=== PATIENT | male | born 1965 | race Caucasian/White ===

== ENCOUNTER 2016-07-04 09:25 | Inpatient (IN) | payer OTHER, MEDICAID ==
--- NOTE | 2016-07-04 09:22 | EDPHY ---
H & P Time Seen by Provider: 07/04/16 09:25 HPI/ROS: CHIEF COMPLAINT: Fever and low blood pressure HISTORY OF PRESENT ILLNESS: Patient has quadriplegia and has an indwelling catheter. At some abdominal tightness and decreased urine output with darker urine color over the past 24 hours, fever overnight and low blood pressure down to the 60s. The emergency department patient still has lower abdominal tightness. Decreased urine output. Still feels fevers. Denies headache or sore throat or cough. No respiratory symptoms. REVIEW OF SYSTEMS: Eye: no change in vision ENT: no sore throat Cardiac: no chest pain or syncope Pulmonary: no cough or SOB Abdomen: Did have a little bit of red blood per rectum, has had diarrhea for a couple of days. Musculoskeletal: no back pain Skin: no rash Neuro: no headache Constitutional: no fever : HPI A comprehensive 10 point review of systems is otherwise negative aside from elements mentioned in the history of present illness. PAST MEDICAL HISTORY: Quadriplegia, history of Clostridium difficile. Suprapubic catheter.Hypothyroid, hypertension. Social history: Here with family and caregiver. General Appearance: Alert and conversant, cooperative. Eyes: No scleral icterus. ENT, Mouth: Normal mucous membranes. Respiratory: Normal respiratory effort, breath sounds equal, lungs are clear to auscultation. Cardiovascular: Regular rate and rhythm. Gastrointestinal: Abdomen is soft and non tender. Suprapubic catheter in place , diarrhea present. Neurological: Alert and oriented x3. Normally conversant. Quadriplegia. Skin: Warm and dry, no rashes. No decubitus or area of cellulitis or sacral breakdown. Musculoskeletal: No peripheral edema and no joint swelling. Psychiatric: Not agitated. Emergency Department course/MDM: Patient arrives with concern for infection given low blood pressure and fever. Blood culture x2, chest x-ray, lactate, urinalysis, stool sent for C diff. 1152: 100/57, IVF 30ml/kg bolus still infusing, Zosyn 4.[address] Villa, c. diff pending. Severe sepsis w/o septic shock. Blood pressure after 30 mL/kilos IV bolus normal saline shows 106/63 at 1:00 p.m.; blood pressure continually over 90 systolic in the emergency department after fluid bolus. At this point most likely source is urine, although Clostridium difficile still pending. Lactate less than 2. Discussed with Cynthia for Dr. Isabel. 1332: In reviewing the patient's chart appears he is on chronic steroids. 100 mg IV hydrocortisone ordered at this time, discussed with the patient's nurse Lorna in the step-down unit. Constitutional: Initial Vital Signs Temperature (C) 38.2 C 07/04/16 09:25 Heart Rate 99 07/04/16 09:25 Respiratory Rate 16 07/04/16 09:25 Blood Pressure 81/55 L 07/04/16 09:25 O2 Sat (%) 94 07/04/16 09:25 O2 Delivery Mode Room Air Allergies/Adverse Reactions: bacitracin [From Neosporin ([id number])] Allergy (Verified 01/21/16 16:24) bacitracin zinc [From Neosporin ([id number])] Allergy (Verified 01/21/16 16: 24) neomycin sulfate [From Neosporin ([id number]-[id number])] Allergy (Verified 01/21/16 16: 24) polymyxin B [From Neosporin ([id number]-qrh-[id number])] Allergy (Verified 01/21/16 16:24) sulfamethoxazole [From Bactrim] Allergy (Verified 01/21/16 16:24) trimethoprim [From Bactrim] Allergy (Verified 01/21/16 16:24) Home Medications: Medication Instructions Recorded Baclofen [Baclofen 10 mg (*)] 10 mg PO BID@0700,1200 07/04/16 Baclofen [Baclofen 20 mg (*)] 20 mg PO DAILY@1800 07/04/16 FLUDROCORTISONE ACETATE 0.1 mg PO DAILY 07/04/16 Herbals/Supplements -Info Only 1 ea PO DAILY 07/04/16 Hydrocortisone [Cortef 10 mg (*)] 10 mg PO BID@0900,1200 07/04/16 LORazepam [Ativan (*)] 0.25 mg PO HS 07/04/16 Levothyroxine [Synthroid 88 mcg 88 mcg PO DAILY@0700 07/04/16 (*)] Liothyronine Sodium [Cytomel 5 mcg 5 mcg PO DAILY@0700 07/04/16 (*)] Lipase/Protease/Amylase [ZENPEP DR 3 cap PO TIDMEAL 07/04/16 5,000 UNITS CAPSULE] Melatonin [Melatonin 3 MG (*)] 10 mg PO HS 07/04/16 Midodrine HCl 10 mg PO BID@0700,2300 07/04/16 Midodrine HCl [Proamatine/Midodrin] 5 mg PO BID@1200,1700 07/04/16 Phenylephrine HCl 1 drop NASAL BID@1200,1700 07/04/16 Potassium Chloride [Klor-Con 10] 15 meq PO TIDMEAL 07/04/16 Selenium [Selenium 200mcg (*)] 200 mcg PO DAILY@1800 07/04/16 Warfarin Sodium [Coumadin 1MG (*)] 13.5 mg PO HS 07/04/16 Medical Decision Making - Diagnostics Imaging: Chest x-ray viewed independently by myself does not show pneumonia. Differential Diagnosis: Differential for fever considered including but not limited to UTI, pneumonia, meningitis, cellulitis. Consult/Admit Bed Type: [facility] 1037; Zosyn IV. Dr. Isabel 1663. Critical Care Time: Critical care time spent by me, Dr. Katz, exclusively with the care of this patient was 35 minutes, exclusive of PA or [employer] time and exclusive of separate procedures. The organ system at risk was infectious and I ordered multiple diagnostic studies including lab and imaging, IV antibiotics Zosyn 4.5 g, IV fluid bolus, discussion with hospitalist physician Dr. Isabel, and Dr. Villa infectious disease design center consultant; to stabilize the patient and prevent worsening of the patient's condition. - Data Points Laboratory Results: Laboratory Results 07/04/16 10:04 07/04/16 10:04 07/04/16 07/04/16 07/04/16 11:05 10:04 09:37 WBC 12.84 H 10^3/uL (3.80-9.50) RBC 4.77 10^6/uL (4.40-6.38) Hgb 14.8 g/dL (13.7-17.5) Hct 42.6 % (40.0-51.0) MCV 89.3 fL (81.5-99.8) MCH 31.0 pg (27.9-34.1) MCHC 34.7 g/dL (32.4-36.7) RDW 14.1 % (11.5-15.2) Plt Count 132 L 10^3/uL (150-400) MPV 9.6 fL (8.7-11.7) Neut % (Auto) 86.1 H % (39.3-74.2) Lymph % (Auto) 3.0 L % (15.0-45.0) [place] % (Auto) 9.8 % (4.5-13.0) Eos % (Auto) 0.1 L % (0.6-7.6) Baso % (Auto) 0.5 % (0.3-1.7) Nucleat RBC Rel Count 0.0 % (0.0-0.2) Absolute Neuts (auto) 11.06 H 10^3/uL (1.70-6.50) Absolute Lymphs (auto) 0.38 L 10^3/uL (1.00-3.00) Absolute Monos (auto) 1.26 H 10^3/uL (0.30-0.80) Absolute Eos (auto) 0.01 L 10^3/uL (0.03-0.40) Absolute Basos (auto) 0.06 10^3/uL (0.02-0.10) Absolute Nucleated RBC 0.00 10^3/uL (0-0.01) Immature Gran % 0.5 % (0.0-1.1) Seg Neutrophils % 54 % Band Neutrophils % 35 % Lymphocytes % 3 % Monocytes % 8 % Immature Gran # 0.07 10^3/uL (0.00-0.10) Absolute Seg Neuts 6.93 H 10^/uL (1.70-6.50) Absolute Band Neuts 4.49 H 10^3/uL (0.00-0.70) Absolute Lymphocytes 0.39 L 10^3/uL (1.00-3.00) Absolute Monocytes 1.03 H 10^3/uL (0.30-0.80) RBC/WBC/PLT Morphology NORMAL (NORMAL) Platelet Estimate DECREASED L (ADEQ) PT 30.4 H SEC (12.0-15.0) INR 2.86 H (0.83-1.16) APTT 46.1 H SEC (23.0-38.0) VBG Lactic Acid 1.5 mmol/L 1.4 mmol/L (0.7-2.1) (0.7-2.1) Sodium 127 L mEq/L (134-144) Potassium 4.5 mEq/L (3.5-5.2) Chloride 97 mEq/L (97-110) Carbon Dioxide 20 L mEq/l (22-31) Anion Gap 10 mEq/L (8-16) BUN 25 H mg/dL (7-23) Creatinine 1.3 mg/dL (0.7-1.3) Estimated GFR 58 Glucose 90 mg/dL (70-100) Calcium 8.0 L mg/dL (8.5-10.4) Total Bilirubin 1.9 H mg/dL (0.1-1.4) Urine Color Urine Appearance Urine pH Ur Specific Green[place] Urine Protein Urine Ketones Urine Blood Urine Nitrate Urine Bilirubin Urine Urobilinogen Ur Leukocyte Esterase Urine RBC Urine WBC Ur Epithelial Cells Urine Bacteria Hyaline Casts Urine Mucus Urine Sperm Urine Glucose C. difficile Tox (PCR) Cancelled 07/04/16 09:34 WBC RBC Hgb Hct MCV MCH MCHC RDW Plt Count MPV Neut % (Auto) Lymph % (Auto) [place] % (Auto) Eos % (Auto) Baso % (Auto) Nucleat RBC Rel Count Absolute Neuts (auto) Absolute Lymphs (auto) Absolute Monos (auto) Absolute Eos (auto) Absolute Basos (auto) Absolute Nucleated RBC Immature Gran % Seg Neutrophils % Band Neutrophils % Lymphocytes % Monocytes % Immature Gran # Absolute Seg Neuts Absolute Band Neuts Absolute Lymphocytes Absolute Monocytes RBC/WBC/PLT Morphology Platelet Estimate PT INR APTT VBG Lactic Acid Sodium Potassium Chloride Carbon Dioxide Anion Gap BUN Creatinine Estimated GFR Glucose Calcium Total Bilirubin Urine Color SABINE Urine Appearance MODERATELY TURBID Urine pH 5.0 (5.0-7.5) Ur Specific [place] 1.017 (1.002-1.030) Urine Protein 2+ H (NEGATIVE) Urine Ketones 1+ H (NEGATIVE) Urine Blood 2+ H (NEGATIVE) Urine Nitrate POSITIVE H (NEGATIVE) Urine Bilirubin NEGATIVE (NEGATIVE) Urine Urobilinogen NEGATIVE EU (0.2-1.0) Ur Leukocyte Esterase 2+ H (NEGATIVE) Urine RBC 25-50 H /hpf (0-3) Urine WBC 50-182 H /hpf (0-3) Ur Epithelial Cells NONE SEEN /lpf (NONE-1+) Urine Bacteria 4+ H /hpf (NONE SEEN) Hyaline Casts 5-15 /lpf (0-1) Urine Mucus 3+ H /lpf (NONE-1+) Urine Sperm PRESENT /hpf (NONE SEEN) Urine Glucose NEGATIVE (NEGATIVE) C. difficile Tox (PCR) Microbiology Results: MICROBIOLOGY 07/04/16 09:37 Stool Gastrointestinal Tract Panel (PCR) - Final Medications Given: Discontinued Medications Piperacillin/Tazobactam/Dextrose (Zosyn (Premix)) 100 mls @ 200 mls/hr IV EDNOW ONE PRN Reason: Protocol Stop: 07/04/16 11:06 Last Admin: 07/04/16 11:40 Dose: 100 mls Sodium Chloride (Ns) 1,000 mls @ 0 mls/hr IV ONCE ONE PRN Reason: Wide Open Stop: 07/04/16 13:22 Last Admin: 07/04/16 13:26 Dose: 1,000 mls Sodium Chloride (Ns *For Sepsis Order Set Only*) 1,905 ml IV EDNOW ONE Stop: 07/04/16 10:38 Last Admin: 07/04/16 10:40 Dose: 1,905 ml Departure - Departure Disposition: [facility] Inpatient Acute Clinical Impression: Urinary tract infection Condition: Fair
[2016-07-04 10:06] LABS: COLOR AMBER; LEUKOCYTE ESTERASE,URINE 2+ (NEGATIVE); NITRITE,URINE POSITIVE (NEGATIVE)
[2016-07-04 10:13] LABS: BACTERIA 4+ /hpf (NONE SEEN); MUCUS 3+ /lpf (NONE-1+); RBC,URINE 25-50 /hpf (0-3); WBC,URINE 50-182 /hpf (0-3)
[2016-07-04 10:22] LABS: % IMMATURE GRANULYOCYTES 0.5 % (0.0-1.1); ABSOLUTE IMMATURE GRANULOCYTES 0.07 10^3/uL (0.00-0.10); ADD DIFF? NO; ADD MORPH? NO; ADD SCAN? YES; ATYPICAL LYMPHOCYTE FLAG 0 (0-99); FRAGMENT RBC FLAG 0 (0-99); HEMATOCRIT 42.6 % (40.0-51.0); HEMOGLOBIN 14.8 g/dL (13.7-17.5); LIPEMIA HEMOLYSIS FLAG 90 (0-99); MEAN CELL HEMOGLOBIN CONCENTR. 34.7 g/dL (32.4-36.7); MEAN CELL VOLUME 89.3 fL (81.5-99.8); MEAN PLATELET VOLUME 9.6 fL (8.7-11.7); PLATELET CLUMPS FLAG 0 (0-99); PLATELET COUNT 132 10^3/uL (150-400); RED BLOOD CELL COUNT 4.77 10^6/uL (4.40-6.38); RED CELL DISTRIBUTION WIDTH 14.1 % (11.5-15.2)
[2016-07-04 10:23] LABS: LEFT SHIFT FLG 250 (0-99)
[2016-07-04 10:26] LABS: SCAN POSITIVE
[2016-07-04 10:36] LABS: APTT 46.1 SEC (23.0-38.0); INR 2.86 (0.83-1.16); PROTIME(PATIENT) 30.4 SEC (12.0-15.0)
[2016-07-04] MEDS ORDERED: PIPERACILLIN/TAZO 4.5 GM/DEX 100 ML IV ONE (10:37)
[2016-07-04] MEDS ORDERED: NS 1,000 ML BAG *FOR SEPSIS ORDER SET ONLY IV ONE (10:37)
[2016-07-04 10:38] LABS: ANION GAP 10 mEq/L (8-16); BILIRUBIN,TOTAL 1.9 mg/dL (0.1-1.4); CARBON DIOXIDE 20 mEq/l (22-31); CHLORIDE 97 mEq/L (97-110); CREATININE 1.3 mg/dL (0.7-1.3); GLOMERULAR FILTRATION RATE 58; GLUCOSE 90 mg/dL (70-100); POTASSIUM 4.5 mEq/L (3.5-5.2); SODIUM 127 mEq/L (134-144)
[2016-07-04 10:58] LABS: PLATELET ESTIMATE DECREASED (ADEQ)
--- NOTE | 2016-07-04 11:20 | DX ---
Portable Chest, Single View History: Low blood pressure. Diarrhea. Meets sepsis criteria. COMPARISON: September 2014. FINDINGS: Heart size is within normal limits. The lungs are clear of acute consolidation. There appea rs to be a 7 mm pulmonary nodule in the right mid lung. No evidence for pleural effusion or pneumotho rax. There is a mild dextroscoliotic curvature to the thoracic spine. Mild degenerative change is see n in both shoulders. There is evidence of prior surgery in the lower cervical spine. IMPRESSION: 1. No evidence for acute cardiopulmonary abnormality. 2. Possible 7 mm pulmonary nodule right mid lung. Recommend follow-up chest x-ray in 3-6 months.
[2016-07-04] MEDS ORDERED: NS 1,000 ML IV ONE (13:21)
[2016-07-04] MEDS ORDERED: HYDROCORTISONE 100 MG/2 ML VIAL IVP ONE (14:33)
[2016-07-04] MEDS ORDERED: ACETAMINOPHEN 325 MG TAB PO PRN (15:12)
[2016-07-04] MEDS ORDERED: oxyCODONE IR 5 MG TAB PO PRN (15:12)
[2016-07-04] MEDS ORDERED: ONDANSETRON 4 MG/2 ML VIAL IVP PRN (15:12)
[2016-07-04] MEDS: NS 1,000 ML IV SCH (15:33)
[2016-07-04] MEDS ORDERED: POTASSIUM CL 20 MEQ/15 ML UDCUP PO SCH (16:00)
[2016-07-04] MEDS ORDERED: VANCOMYCIN 750 MG in D5W 150 ML IV ONE (16:34)
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
[2016-07-04] MEDS: PHENYLEPHRINE 10% OP SCH (17:00)
[2016-07-04] MEDS: BACLOFEN 20 MG TAB PO SCH (17:06)
[2016-07-04] MEDS: MIDODRINE HCL 5 MG TAB PO SCH ×4 (17:07→22:44)
[2016-07-04] MEDS: PROTEASE PO SCH (17:56)
[2016-07-04] MEDS: AMYLASE PO SCH (17:56)
[2016-07-04] MEDS: LIPASE PO SCH (17:56)
[2016-07-04] MEDS ORDERED: POTASSIUM CHLORIDE 15 MEQ PO SCH (18:00)
[2016-07-04] MEDS: PIPERACILLIN/TAZO 4.5 GM/DEX 100 ML IV SCH (19:02)
[2016-07-04] MEDS: SELENIUM 0.2 MG TAB PO SCH (19:13)
[2016-07-04] MEDS ORDERED: WARFARIN SODIUM 5 MG TAB PO SCH (21:00)
[2016-07-04] MEDS ORDERED: WARFARIN SODIUM 1 MG TAB PO SCH (21:00)
[2016-07-04] MEDS ORDERED: PIPERACILLIN/TAZO 4.5 GM/DEX 100 ML IV SCH (22:00)
[2016-07-04] MEDS: MELATONIN 3 MG TAB PO SCH (22:40)
[2016-07-04] MEDS: LORazepam 0.5 MG TAB PO SCH (22:42)
[2016-07-04] MEDS: POTASSIUM CL 20 MEQ PKT PO SCH (22:45)
[2016-07-05] MEDS: HYDROCORTISONE 100 MG/2 ML VIAL IVP SCH ×4 (00:24→23:11)
--- NOTE | 2016-07-05 00:42 | GCON ---
[f rep st] CONSULTATION INFECTIOUS DISEASE CONSULTATION. DATE OF CONSULTATION: 07/04/2016 REFERRING PHYSICIAN: Benoit Katz MD REASON FOR CONSULTATION: Sepsis. HISTORY OF PRESENT ILLNESS: Patient is a 50-year-old male with a past medical history of incomplete quadriplegia at C5 whom I am asked to see in consultation for sepsis. Patient developed profuse diar adbelrahman and rigors yesterday. He notes his diarrhea began after he had increased his dose of an antipar asitic herbal remedy in the artemisinin family. Post increased dose of artemisinin, he developed sha evie chills and a fever. Thereafter, he noted decreased urine output with a darker color. He did no t have any specific symptoms of UTI although this is difficult to assess with his paraplegia and decr eased sensation. He does describe having lower abdominal tightness and some sense of fullness in his flanks bilaterally. Patient does have an indwelling suprapubic catheter. He has experienced urinar y tract infection in the past and was hospitalized in 2014 for a UTI with urine cultures at that time showing growth of Morganella, Serratia, and enterococcus faecalis. Patient does not note any UTIs i n the interim or recent antibiotic exposure. He does have a remote history of C difficile as well. Multiplex PCR testing of his stool was performed earlier today and shows a negative C difficile toxin and is negative for all other tested pathogens. Patient has been empirically started on antibiotic therapy with Zosyn. Blood and urine cultures have been obtained. Given the above findings, I am now asked to assist in his ongoing management. PAST MEDICAL HISTORY: Incomplete C5 quadriplegia, UTI, chronic indwelling suprapubic catheter, adren al insufficiency, DVT/pulmonary emboli. PAST SURGICAL HISTORY: Cervical fusion, suprapubic catheter placement. CURRENT MEDICATIONS: Zosyn 4.5 g IV x1, baclofen 20 mg p.o. q.p.m. and 10 mg p.o. b.i.d., Florinef 0 .1 mg p.o. daily, hydrocortisone 100 mg IV q.8 hours, Synthroid 88 mcg p.o. daily, Cytomel 5 mg p.o. daily, Ativan 0.25 mg p.o. q.h.s., Melatonin 9 mg p.o. q.h.s., Midodrine 5 mg p.o. at 1200 and 1700 a nd 10 mg p.o. at 0700 and 2300, selenium 0.2 mg p.o. daily, warfarin 13.5 mg p.o. q.h.s. ALLERGIES: Potential reaction to sulfonamides with periorbital swelling although patient notes this continued when he was using an herbal antiparasitic agent, which he uses for chronic GI symptoms. SOCIAL HISTORY: Patient does not smoke or drink alcohol. No animal exposure or recent travel. FAMILY HISTORY: Colon cancer in his parents. REVIEW OF SYSTEMS: Patient has had sacral skin breakdown and heel skin breakdown but currently has i ntact skin throughout. Unless otherwise noted, the remainder of a 10 system review is unremarkable e xcept for increased muscle spasm. PHYSICAL EXAMINATION: VITAL SIGNS: Temperature maximum 38.2, heart rate 72, blood pressure 141/77, respiratory rate 28, oxygen saturation 93% on room air. GENERAL: Patient is chronically ill appeari ng, in no acute distress. He appears nontoxic. HEENT: There is no scleral icterus, conjunctival in jection, or conjunctival petechiae. Oropharynx clear without lesions. Dentition is in fair repair. Mucous membranes are dry. There is no tenderness over the frontal maxillary mastoid area. NECK: D ecreased range of motion post fusion. No palpable adenopathy or thyromegaly. CHEST: Clear to auscu ltation bilaterally without adventitious sounds. The respiratory effort is normal. CARDIOVASCULAR: Regular rate and rhythm with a 2/6 systolic murmur heard throughout. ABDOMEN: Soft, nontender, non distended. A suprapubic catheter is in place without significant erythema or drainage. MUSCULOSKELE BASSEM: There is no cyanosis, clubbing, or edema; there is a contracture of the left hand. SKIN: Ther e is no sacral skin breakdown or breakdown of skin over the heel; there is mild erythema in both ingu inal regions with slight erythema over the scrotum but no evidence of blisters or necrosis. NEUROLOG IC: Patient is alert and interacts appropriately with the examiner. Cranial nerves 2-12 grossly int act. Patient has paraplegia. LYMPHATICS: There are no cervical, supraclavicular, or inguinal nodes palpable. LABORATORY DATA: White blood cell count 12.8, hematocrit 42.6, platelets 132, neutrophils 54%, bands 35%. Serum creatinine is 1.3, bicarbonate is 20. Anion gap is 10. INR is 2.9. Venous lactate is 1.5. Urinalysis shows 25-50 red blood cells and 50-182 white blood cells with 4+ bacteria. Gastroin testinal multiplex PCR is negative for all pathogens tested including C difficile, blood cultures and urine cultures are pending. Chest x-ray shows no evidence of pneumonia. IMPRESSION: 1. Sepsis: Most likely, this is due to a urinary etiology given chronic suprapubic catheter. There is faint erythema over the inguinal region bilaterally and scrotal area but I suspect this will be n oninfectious rather than representing cellulitis. There is no evidence of Claribel gangrene. Given his chronic catheterization, he will be at risk for drug-resistant pathogens. RECOMMENDATIONS: 1. Zosyn 4.5 g IV q.8 hours. 2. Vancomycin 750 mg IV x1 pending further culture data. 3. Followup blood and urine cultures as available. 4. Continued ICU supportive care and volume resuscitation. Thank you for this consultation. We will continue to follow the patient with you. /[id number]/MODL
[2016-07-05] MEDS: PIPERACILLIN/TAZO 4.5 GM/DEX 100 ML IV SCH ×4 (03:58→18:33)
[2016-07-05 05:40] LABS: ADD DIFF? YES; ADD MORPH? NO; ATYPICAL LYMPHOCYTE FLAG 0 (0-99); FRAGMENT RBC FLAG 0 (0-99); HEMATOCRIT 37.4 % (40.0-51.0); HEMOGLOBIN 12.8 g/dL (13.7-17.5); LIPEMIA HEMOLYSIS FLAG 90 (0-99); MEAN CELL HEMOGLOBIN 30.8 pg (27.9-34.1); MEAN CELL HEMOGLOBIN CONCENTR. 34.2 g/dL (32.4-36.7); MEAN CELL VOLUME 90.1 fL (81.5-99.8); MEAN PLATELET VOLUME 9.9 fL (8.7-11.7); PLATELET CLUMPS FLAG 10 (0-99); PLATELET COUNT 125 10^3/uL (150-400); RED BLOOD CELL COUNT 4.15 10^6/uL (4.40-6.38); RED CELL DISTRIBUTION WIDTH 14.7 % (11.5-15.2)
[2016-07-05 05:45] LABS: ADD SCAN? NO; LEFT SHIFT FLG 300 (0-99)
[2016-07-05 05:58] LABS: ALANINE AMINOTRANSFERASE 61 IU/L (21-72); ALBUMIN 2.4 g/dL (3.5-5.0); ALKALINE PHOSPHATASE 41 IU/L (38-126); ANION GAP 9 mEq/L (8-16); ASPARTATE AMINOTRANSFERASE 40 IU/L (17-59); BILIRUBIN-CONJUGATED 0.1 mg/dL (0.0-0.5); BILIRUBIN-UNCONJUGATED 0.9 mg/dL (0.0-1.1); CALCIUM 8.1 mg/dL (8.5-10.4); CARBON DIOXIDE 21 mEq/l (22-31); CHLORIDE 110 mEq/L (97-110); CREATININE 0.7 mg/dL (0.7-1.3); GLOMERULAR FILTRATION RATE > 60; GLUCOSE 120 mg/dL (70-100); POTASSIUM 3.3 mEq/L (3.5-5.2); SODIUM 140 mEq/L (134-144); TOTAL PROTEIN 4.7 g/dL (6.3-8.2)
[2016-07-05 06:16] LABS: PROTIME(PATIENT) 48.2 SEC (12.0-15.0)
[2016-07-05 06:17] LABS: INR 5.1 (0.83-1.16)
[2016-07-05 07:25] LABS: PLATELET ESTIMATE DECREASED (ADEQ)
[2016-07-05] MEDS: NS 1,000 ML IV SCH (07:34)
[2016-07-05] MEDS: LEVOTHYROXINE 88 MCG TAB PO SCH (07:42)
[2016-07-05] MEDS: POTASSIUM CL 20 MEQ PKT PO SCH (08:01)
[2016-07-05] MEDS: BACLOFEN 10 MG TAB PO SCH ×2 (08:56→14:24)
[2016-07-05] MEDS: FLUDROCORTISONE ACETATE 0.1 MG TAB PO SCH (08:56)
[2016-07-05] MEDS: POTASSIUM CL 10 MEQ TAB PO SCH ×3 (08:56→23:11)
[2016-07-05] MEDS: LIOTHYRONINE SODIUM 5 MCG TAB PO SCH (08:56)
[2016-07-05] MEDS: MIDODRINE HCL 5 MG TAB PO SCH ×4 (09:02→23:16)
[2016-07-05] MEDS: AMYLASE PO SCH ×3 (10:14→20:47)
[2016-07-05] MEDS: LIPASE PO SCH ×3 (10:14→20:47)
[2016-07-05] MEDS: PROTEASE PO SCH ×3 (10:14→20:47)
--- NOTE | 2016-07-05 11:16 | HOSPPROG ---
Hospitalist Progress Note Assessment/Plan: * Sepsis * resolved * complicated urinary tract infection * on Zosyn * has suprapubic catheter * adrenal insufficiency * wean steroids today * history of DVT and PE * INR supratherapeutic * hold Coumadin * chronic GI complaints * stool sample is negative Subjective: feels better. Objective: Vital Signs Temp Pulse Resp BP Pulse Ox 38.0 C 70 22 H 111/95 H 95 07/04/16 17:00 07/05/16 08:00 07/05/16 08:00 07/05/16 08:00 07/05/16 08:00 Laboratory Results 07/05/16 05:07 07/05/16 05:07 07/04/16 07/05/16 07/06/16 05:59 05:59 05:59 Intake Total 5992 Output Total 3075 Balance 2917 PT 48.2 SEC (12.0-15.0) H D 07/05/16 05:07 INR 5.10 (0.83-1.16) H* 07/05/16 05:07 - Physical Exam Constitutional: no apparent distress, appears nourished, not in pain Eyes: anicteric sclera, EOMI Ears, Nose, Mouth, Throat: moist mucous membranes, hearing normal, ears appear normal Cardiovascular: regular rate and rhythym, no murmur, rub, or gallop Respiratory: no respiratory distress, no rales or rhonchi, clear to auscultation Gastrointestinal: normoactive bowel sounds, soft, non-tender abdomen, no palpable masses Skin: warm Neurologic: AAOx3 Psychiatric: interacting appropriately, not anxious, not encephalopathic, thought process linear ICD10 Worksheet Patient Problems: Problems Problem Status Diagnosed Chest pain Acute Urinary retention Acute Urinary tract infection Acute
[2016-07-05] MEDS: PHENYLEPHRINE 10% OP SCH ×2 (12:37→18:44)
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
[2016-07-05] MEDS: SELENIUM 0.2 MG TAB PO SCH (17:38)
[2016-07-05] MEDS: BACLOFEN 20 MG TAB PO SCH (17:38)
--- NOTE | 2016-07-05 17:47 | PCMIDPN ---
Assessment/Plan: Assessment/Plan: * Sepsis likely of urinary etiology: Urine culture with multiple pathogens although Enterococcus appears to be dominant pathogen. Await further identification and susceptibility profiles on organisms. Continue Zosyn. Will not utilized further vancomycin. Discussed with patient that prudent to continue hospital stay pending further culture data and current IV antibiotics. 07/05/16 17:44 Subjective: Patient eager to go home. Feels markedly improved. Objective: Vital Signs Temp Pulse Resp BP Pulse Ox 36.8 C 89 17 142/86 H 95 07/05/16 16:00 07/05/16 16:00 07/05/16 16:00 07/05/16 16:00 07/05/16 16:00 Laboratory Results 07/05/16 05:07 07/05/16 05:07 07/04/16 07/05/16 07/06/16 05:59 05:59 05:59 Intake Total 5992 Output Total 3075 Balance 2917 Zosyn # 2 Status post vancomycin x1 Urine culture with growth of lactose fermenting gram-negative obed x2 species and Enterococcus Blood cultures no growth today - Physical Exam General Appearance: alert, no apparent distress EENT: pharynx normal, No conjunctival petechiae Respiratory: lungs clear, No respiratory distress Cardiac/Chest: regular rate, rhythm Abdomen: No distended ICD10 Worksheet Patient Problems: Problems Problem Status Diagnosed Chest pain Acute Urinary retention Acute Urinary tract infection Acute
[2016-07-05] MEDS: LORazepam 0.5 MG TAB PO SCH (23:12)
[2016-07-05] MEDS: MELATONIN 3 MG TAB PO SCH (23:13)
[2016-07-06] MEDS: PIPERACILLIN/TAZO 4.5 GM/DEX 100 ML IV SCH ×3 (03:10→21:54)
[2016-07-06 05:36] LABS: ADD MORPH? NO; ADD SCAN? YES; ATYPICAL LYMPHOCYTE FLAG 0 (0-99); FRAGMENT RBC FLAG 0 (0-99); HEMATOCRIT 35.3 % (40.0-51.0); HEMOGLOBIN 11.8 g/dL (13.7-17.5); LIPEMIA HEMOLYSIS FLAG 80 (0-99); MEAN CELL HEMOGLOBIN 29.8 pg (27.9-34.1); MEAN CELL HEMOGLOBIN CONCENTR. 33.4 g/dL (32.4-36.7); MEAN CELL VOLUME 89.1 fL (81.5-99.8); PLATELET CLUMPS FLAG 0 (0-99); PLATELET COUNT 120 10^3/uL (150-400); RED BLOOD CELL COUNT 3.96 10^6/uL (4.40-6.38); RED CELL DISTRIBUTION WIDTH 14.6 % (11.5-15.2)
[2016-07-06 05:45] LABS: LEFT SHIFT FLG 230 (0-99)
[2016-07-06 05:46] LABS: PROTIME(PATIENT) 58.4 SEC (12.0-15.0)
[2016-07-06 05:47] LABS: ANION GAP 9 mEq/L (8-16); CALCIUM 8.1 mg/dL (8.5-10.4); CARBON DIOXIDE 23 mEq/l (22-31); CHLORIDE 110 mEq/L (97-110); CREATININE 0.6 mg/dL (0.7-1.3); GLOMERULAR FILTRATION RATE > 60; GLUCOSE 90 mg/dL (70-100); POTASSIUM 3.5 mEq/L (3.5-5.2); SODIUM 142 mEq/L (134-144)
[2016-07-06 06:01] LABS: INR 6.48 (0.83-1.16)
[2016-07-06] MEDS: HYDROCORTISONE 100 MG/2 ML VIAL IVP SCH (06:26)
[2016-07-06 06:30] LABS: ADD DIFF? YES; SCAN POSITIVE
[2016-07-06 06:40] LABS: GIANT PLATELETS PRESENT; LARGE PLATELETS PRESENT; PLATELET ESTIMATE DECREASED (ADEQ); TOXIC GRANULATION PRESENT; TOXIC VACUOLIZATION PRESENT
[2016-07-06] MEDS: BACLOFEN 10 MG TAB PO SCH ×2 (09:17→16:03)
[2016-07-06] MEDS: LEVOTHYROXINE 88 MCG TAB PO SCH (09:18)
[2016-07-06] MEDS: POTASSIUM CL 10 MEQ TAB PO SCH ×3 (09:19→21:51)
[2016-07-06] MEDS: LIPASE PO SCH ×3 (09:21→18:36)
[2016-07-06] MEDS: LIOTHYRONINE SODIUM 5 MCG TAB PO SCH (09:21)
[2016-07-06] MEDS: AMYLASE PO SCH ×3 (09:21→18:36)
[2016-07-06] MEDS: PROTEASE PO SCH ×3 (09:21→18:36)
[2016-07-06] MEDS: HYDROCORTISONE 10 MG TAB PO SCH ×2 (09:29→16:00)
[2016-07-06] MEDS: MIDODRINE HCL 5 MG TAB PO SCH ×4 (09:53→21:52)
--- NOTE | 2016-07-06 13:55 | PCMIDPN ---
Assessment/Plan: Assessment/Plan: * Sepsis likely of urinary etiology: Urine culture with multiple pathogens including Enterococcus, Klebsiella, and Serratia as dominant pathogens. Susceptibility not available until tomorrow given mixed culture. Discussed with patient and favor continued Zosyn pending additional susceptibility data. Zosyn may be potentiating affect of warfarin (on hold) as could his presentation with sepsis. * Diarrhea: Stool multiplex PCR negative. May be related to prior herbal therapies. 07/06/16 13:53 Subjective: Continues to feel improved but still with diarrhea. Did not sleep well last night. Objective: Vital Signs Temp Pulse Resp BP Pulse Ox 36.7 C 68 14 140/90 H 93 07/06/16 11:37 07/06/16 11:37 07/06/16 11:37 07/06/16 11:37 07/06/16 11:37 Laboratory Results 07/06/16 04:58 07/06/16 04:58 07/05/16 07/06/16 07/07/16 05:59 05:59 05:59 Intake Total 5992 1500 Output Total 3075 2650 1200 Balance 2917 -1150 -1200 Zosyn # 3 Blood cultures no growth Urine culture with growth of multiple pathogens with the dominant including Enterococcus, Klebsiella, and Serratia - Physical Exam General Appearance: alert, no apparent distress EENT: pharynx normal, No scleral icterus Cardiac/Chest: regular rate, rhythm Skin: other (Erythema in both inguinal regions has resolved with mild residual scrotal erythema) ICD10 Worksheet Patient Problems: Problems Problem Status Diagnosed Chest pain Acute Urinary retention Acute Urinary tract infection Acute
[2016-07-06 15:42] VITALS: RESP 16
--- NOTE | 2016-07-06 16:16 | HOSPPROG ---
Hospitalist Progress Note Assessment/Plan: * Sepsis * resolved * complicated urinary tract infection * on Zosyn * has suprapubic catheter * positive Enterococcus among other bacteria * adrenal insufficiency * switch to home dose of steroids * history of DVT and PE * INR supratherapeutic * hold Coumadin * chronic GI complaints * stool sample is negative Subjective: continues to improve. Still having some diarrhea Objective: Vital Signs Temp Pulse Resp BP Pulse Ox 36.8 C 53 L 16 137/84 H 93 07/06/16 15:41 07/06/16 15:41 07/06/16 15:41 07/06/16 15:41 07/06/16 15:41 Laboratory Results 07/06/16 04:58 07/06/16 04:58 07/05/16 07/06/16 07/07/16 05:59 05:59 05:59 Intake Total 5992 1500 Output Total 3075 2650 1200 Balance 2917 -1150 -1200 PT 58.4 SEC (12.0-15.0) H D 07/06/16 04:58 INR 6.48 (0.83-1.16) H* 07/06/16 04:58 - Physical Exam Constitutional: no apparent distress, appears nourished, not in pain Eyes: anicteric sclera, EOMI Cardiovascular: regular rate and rhythym Respiratory: no respiratory distress Skin: warm Neurologic: AAOx3 Psychiatric: interacting appropriately, not anxious, not encephalopathic, thought process linear ICD10 Worksheet Patient Problems: Problems Problem Status Diagnosed Chest pain Acute Urinary retention Acute Urinary tract infection Acute
[2016-07-06] MEDS: PHENYLEPHRINE 10% OP SCH (17:23)
[2016-07-06] MEDS: SELENIUM 0.2 MG TAB PO SCH (18:40)
[2016-07-06] MEDS: MELATONIN 3 MG TAB PO SCH (21:52)
[2016-07-06] MEDS: LORazepam 0.5 MG TAB PO SCH (21:53)
[2016-07-06] MEDS: BACLOFEN 20 MG TAB PO SCH (21:53)
[2016-07-07 05:03] LABS: % IMMATURE GRANULYOCYTES 0.7 % (0.0-1.1); ABSOLUTE IMMATURE GRANULOCYTES 0.06 10^3/uL (0.00-0.10); ABSOLUTE NRBC COUNT 0.03 10^3/uL (0-0.01); ADD DIFF? NO; ADD MORPH? NO; ADD SCAN? NO; ATYPICAL LYMPHOCYTE FLAG 20 (0-99); FRAGMENT RBC FLAG 0 (0-99); HEMATOCRIT 37.4 % (40.0-51.0); HEMOGLOBIN 12.8 g/dL (13.7-17.5); LEFT SHIFT FLG 60 (0-99); LIPEMIA HEMOLYSIS FLAG 90 (0-99); MEAN CELL HEMOGLOBIN 30.3 pg (27.9-34.1); MEAN CELL HEMOGLOBIN CONCENTR. 34.2 g/dL (32.4-36.7); MEAN CELL VOLUME 88.4 fL (81.5-99.8); MEAN PLATELET VOLUME 9.8 fL (8.7-11.7); NRBC-AUTO% 0.3 % (0.0-0.2); PLATELET CLUMPS FLAG 0 (0-99); PLATELET COUNT 130 10^3/uL (150-400); RED BLOOD CELL COUNT 4.23 10^6/uL (4.40-6.38); RED CELL DISTRIBUTION WIDTH 14.8 % (11.5-15.2)
[2016-07-07 05:10] LABS: INR 3.29 (0.83-1.16)
[2016-07-07 05:12] LABS: ANION GAP 6 mEq/L (8-16); CALCIUM 8.4 mg/dL (8.5-10.4); CARBON DIOXIDE 26 mEq/l (22-31); CHLORIDE 106 mEq/L (97-110); CREATININE 0.7 mg/dL (0.7-1.3); GLOMERULAR FILTRATION RATE > 60; GLUCOSE 82 mg/dL (70-100); POTASSIUM 3.8 mEq/L (3.5-5.2); SODIUM 138 mEq/L (134-144)
[2016-07-07] MEDS: PIPERACILLIN/TAZO 4.5 GM/DEX 100 ML IV SCH (07:31)
[2016-07-07] MEDS: MIDODRINE HCL 5 MG TAB PO SCH ×2 (07:32→13:04)
[2016-07-07] MEDS: LIOTHYRONINE SODIUM 5 MCG TAB PO SCH (07:32)
[2016-07-07] MEDS: BACLOFEN 10 MG TAB PO SCH ×2 (07:32→14:23)
[2016-07-07] MEDS: LEVOTHYROXINE 88 MCG TAB PO SCH (07:32)
[2016-07-07 08:10] VITALS: TEMP 98.2
[2016-07-07] MEDS: POTASSIUM CL 10 MEQ TAB PO SCH (08:32)
[2016-07-07] MEDS: FLUDROCORTISONE ACETATE 0.1 MG TAB PO SCH (08:33)
[2016-07-07] MEDS: PROTEASE PO SCH ×2 (08:33→14:32)
[2016-07-07] MEDS: HYDROCORTISONE 10 MG TAB PO SCH ×2 (08:33→14:23)
[2016-07-07] MEDS: AMYLASE PO SCH ×2 (08:33→14:32)
[2016-07-07] MEDS: LIPASE PO SCH ×2 (08:33→14:32)
--- NOTE | 2016-07-07 11:03 | PCMIDPN ---
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 This colonization is in place secondary to the catheterization status. Will continue treatment of the patient with oral Levaquin and amoxicillin given that the most likely pathogens in the urine culture are the Klebsiella, Serratia or Enterococcus as judged by typical virulence and colony count. Plan: 1. Discontinue intravenous Zosyn. 2. Start amoxicillin 500 mg p.o. three times daily and Levaquin 750 mg p.o. daily. 7 day course for both. Subjective: Patient is sitting up in bed. No new complaint. States he feels much better than admission. Objective: Zosyn #4 Vital Signs Temp Pulse Resp BP Pulse Ox 36.8 C 66 16 122/83 H 94 07/07/16 08:00 07/07/16 08:00 07/07/16 08:00 07/07/16 08:00 07/07/16 08:00 Laboratory Results 07/07/16 04:18 07/07/16 04:18 07/06/16 07/07/16 07/08/16 05:59 05:59 05:59 Intake Total 1500 1500 Output Total 2650 3750 Balance -1150 -2250 - Physical Exam General Appearance: WD/WN, alert, no apparent distress, non-toxic Respiratory: lungs clear, normal breath sounds, No respiratory distress Cardiac/Chest: regular rate, rhythm, No tachycardia Skin: normal color, warm/dry, No rash ICD10 Worksheet Patient Problems: Problems Problem Status Diagnosed Chest pain Acute Urinary retention Acute Urinary tract infection Acute
[2016-07-07 11:39] VITALS: BP 157/98; PULSE 69; O2SAT 90
[2016-07-07] MEDS: PHENYLEPHRINE 10% OP SCH (14:32)
[2016-07-07] MEDS ORDERED: PIPERACILLIN NA/TAZO 4.5 GM in D5W 100 ML IV SCH (15:00)
--- NOTE | 2016-07-07 15:15 | GDS ---
[f rep st] DISCHARGE SUMMARY DISCHARGE DIAGNOSES: 1. Sepsis due to urinary tract infection. 2. Complicated urinary tract infection. 3. History of incomplete quadriplegia. 4. Adrenal insufficiency. 5. History of deep venous thrombosis and pulmonary embolism. 6. Supratherapeutic international normalized ratio. 7. Chronic diarrhea. HISTORY: This is a 50-year-old male presenting with fever. HOSPITAL COURSE: The patient qualified for sepsis initially. Urine was the suspected source. He wa s given IV fluids, as well as antibiotics. He did improve over the next couple days. A urine cultur e grew out several organisms, but the predominant one was Enterococcus. We are still waiting for sen sitivities on this. However, he is doing so well that we are going to discharge him home. DISPOSITION: Home. DISCHARGE MEDICATIONS: In addition to his home medicines, he will be given Levaquin and amoxicillin. DISCHARGE INSTRUCTIONS: 1. The patient's INR was quite increased during the stay and, thus, he is instructed to reduce his C oumadin dose by half today and tomorrow, and to get an INR at home tomorrow. 2. He is also instructed to have his primary care doctor follow up on the cultures and sensitivities , or to follow up with Infectious Disease. TIME SPENT: Greater than 30 minutes were spent in discharge. /[id number]/MODL
--- NOTE | 2016-07-10 10:14 | PQFORM ---
PHYSICIAN QUERY FORM Needs Your Response This query form is being sent to you to assure this patient record is coded properly. Please respond to the question below: ADULT SECONDARY EDUCATION INSTRUCTOR QUESTION: Dear Dr. Davison, It is documented in the ER report, H&P, and Dr. Villa's 07/04 Consult that this patient has a 'indwelling suprapubic catheter.' Patient is also diagnosed with a Urinary tract infection. After study, can the UTI be associated to the suprapubic catheter?? ___x___ Yes No Other more appropriate diagnosis Unable to determine Thank you Jessica Alves, [facility] HIM/Coding Dept [phone] INSTRUCTIONS FOR RESPONSE: Answer question by clicking on the "Edit Document" button. Move cursor to area below the stars. When complete, hit "Save." Click on the "Sign" button, then click "Sign" again. Type in your PIN and hit "Enter." MTDD
== END 2016-07-07 14:47 | disposition home or self-care (01) | DRG 698 ==
LOC: EDUNIT# → F2N 13:50 → F3E 07-05 22:08
PROVIDERS: ADMIT Internal Medicine; ATTEND Internal Medicine
DX: T83.598A Infection and inflammatory reaction due to other prosthetic device, implant and graft in urinary system, initial encounter (principal); A41.81 Sepsis due to Enterococcus; G82.54 Quadriplegia, C5-C7 incomplete; N39.0 Urinary tract infection, site not specified; E27.40 Unspecified adrenocortical insufficiency; K52.9 Noninfective gastroenteritis and colitis, unspecified; E03.9 Hypothyroidism, unspecified; I10 Essential (primary) hypertension; Z86.718 Personal history of other venous thrombosis and embolism; Z86.711 Personal history of pulmonary embolism
CPT/HCPCS: 96365; 97110-GP; 97161-GP; G8978-GP-CM; G8979-GP-CM; G8980-GP-CM; J2543; J3370

== ENCOUNTER 2018-02-14 14:40 | Observation (INO) | payer OTHER, MEDICAID ==
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
[2018-02-14 15:40] LABS: INR 17.46 (0.83-1.16); PROTIME(PATIENT) 118.9 SEC (12.0-15.0)
[2018-02-14] MEDS ORDERED: PHYTONADIONE 5 MG in NS 50 ML IV ONE (15:45)
[2018-02-14 15:49] LABS: PLATELET COUNT 150 10^3/uL (150-400)
[2018-02-14] MEDS ORDERED: ONDANSETRON 4 MG/2 ML VIAL IVP PRN (18:51)
[2018-02-14] MEDS ORDERED: ACETAMINOPHEN 325 MG TAB PO PRN (18:51)
[2018-02-14] MEDS ORDERED: NS 1,000 ML IV SCH (19:00)
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
[2018-02-14] MEDS: MIDODRINE HCL 5 MG TAB PO SCH (20:44)
[2018-02-14] MEDS ORDERED: MELATONIN 3 MG TAB PO SCH (21:00)
[2018-02-14] MEDS ORDERED: PHENYLEPHRINE 10% OP PRN (21:00)
[2018-02-14] MEDS ORDERED: MIDODRINE HCL 5 MG TAB PO PRN ×2 (22:03)
[2018-02-15 04:35] LABS: PLATELET COUNT 128 10^3/uL (150-400)
[2018-02-15] MEDS: MIDODRINE HCL 5 MG TAB PO PRN ×2 (05:13→08:29)
[2018-02-15 05:18] LABS: INR 1.81 (0.83-1.16); PROTIME(PATIENT) 21.1 SEC (12.0-15.0)
[2018-02-15] MEDS ORDERED: LEVOTHYROXINE 88 MCG TAB PO SCH (07:00)
[2018-02-15] MEDS ORDERED: LIOTHYRONINE SODIUM 5 MCG TAB PO SCH (07:00)
[2018-02-15] MEDS ORDERED: HYDROCORTISONE 10 MG TAB PO SCH ×2 (08:00→12:00)
[2018-02-15 08:50] VITALS: BP 132/78
[2018-02-15] MEDS ORDERED: MIDODRINE HCL 5 MG TAB PO SCH (09:00)
[2018-02-15] MEDS: AMYLASE PO SCH ×2 (09:11→12:42)
[2018-02-15] MEDS: POTASSIUM CL 10 MEQ TAB PO SCH ×2 (09:11→12:42)
[2018-02-15] MEDS: PROTEASE PO SCH ×2 (09:11→12:42)
[2018-02-15] MEDS: LIPASE PO SCH ×2 (09:11→12:42)
[2018-02-15] MEDS ORDERED: PHENYLEPHRINE 10% OP SCH (12:00)
[2018-02-15] MEDS ORDERED: ENOXAPARIN 60 MG/0.6 ML SYR SC SCH (12:15)
--- NOTE | 2018-02-15 12:17 | PDIAF ---
- Diagnosis Diagnosis: Elevated INR Code Status: Full Code - Medication Management Discharge Medications: Medications to Continue on Transfer Levothyroxine [Synthroid 88 mcg (*)] 88 mcg PO DAILY@0700 07/04/16 [Last Taken 02/14/18] Liothyronine Sodium [Cytomel 5 mcg (*)] 5 mcg PO DAILY@0700 07/04/16 [Last Taken 02/14/18] Midodrine HCl 10 mg PO DAILY 07/04/16 [Last Taken 07/03/16] Herbals/Supplements -Info Only 1 ea PO DAILY 02/14/18 [Last Taken Unknown] Hydrocortisone 2.5 mg PO DAILY@12 02/14/18 [Last Taken 02/13/18] Hydrocortisone 3.75 mg PO DAILY@08 02/14/18 [Last Taken 02/14/18] Lipase/Protease/Amylase [Zenpep Dr 5,000 Unit Capsule] 3 cap PO TID 02/14/18 [ Last Taken 02/04/18] Melatonin [Melatonin 5 mg] 10 mg PO HS 02/14/18 [Last Taken 02/13/18] Midodrine HCl 5 mg PO DAILY@12,17,21 02/14/18 [Last Taken 02/13/18] Phenylephrine HCl 1 drop OP AC PRN 02/14/18 [Last Taken Unknown] Potassium Cl [Klor-Con 10 meq (RX)] 10 meq PO TIDMEAL 02/14/18 [Last Taken 02/14] Warfarin Sodium [Coumadin 5MG (*)] 15 mg PO DAILY16 02/14/18 [Last Taken ] Enoxaparin [Lovenox 60 MG (*)] 60 mg SC BID #6 syr 02/15/18 [Last Taken Unknown] Discharge Medications: Refer to the Discharge Home Medication list for PRN reason. - Orders Services needed: Home Care, Registered Nurse Home Care Face to Face: I certify that this patient was under my care and that I had the required [id number] encounter meeting the encounter requirements on the discharge day. My findings support the fact that the patient is homebound as defined in Home Care Face to Face Continued: CMS Chapter 7 Medicare Benefits Manual 30.1.1 , The condition of the patient is such that there exists a normal inability to leave home and consequently, leaving home would require a considerable and taxing effort. Isolation Type: None Diet Recommendation: no restrictions on diet Diet Texture: Regular Texture Diet - Labs/Radiology PT/INR Date: 02/16/18 (02/17-02/20) - Follow Up Care Current Providers and Referrals: Salud Weldon MD [Primary Care Provider] - As per Instructions
[2018-02-15] MEDS: MIDODRINE HCL 5 MG TAB PO SCH ×2 (12:44→14:05)
--- NOTE | 2018-02-15 13:36 | ASMTDCNOTE ---
Case Management Discharge Discharge Order Complete? Answers: Yes Patient to Obtain Answers: via Family Medications Transportation Arranged Answers: Other Notes: family EMTALA Complete Answers: No Case Management Transport Answers: No Form Complete Faxed Final Orders Answers: No Agency/Facility Transfer Answers: No Report Printed & Faxed to Receiving Agency Family Notified Answers: Yes Notes: per pt Discharge Comments Notes: 02/15/2018 Case Management Note Met w/pt. REY signed, witnessed by case management. Pt to have partner pickle solution maker and transport home. Pt wants to use [employer] for INR draws. Pt to arrange for daily visits for short term to follow trends. Pt refused HC services. There are no further case mangement d/c needs. Date Signed: 02/15/2018 01:36 PM Electronically Signed By:TONYA Esqueda
--- NOTE | 2018-02-15 15:25 | ASDISCHSUM ---
Discharge Information Plan Status:Home with No Needs Medically Cleared to Leave:02/15/2018 Discharge Date:02/15/2018 02:37 PM CM D/C Disposition:Home, Routine, Self-Care ADT D/C Disposition:Home, Routine, Self-Care Projected Discharge Date:02/15/2018 02:37 PM Transportation at D/C:Family Discharge Delay Reason: Follow-Up Date:02/15/2018 02:37 PM Discharge Slot: Final Diagnosis: Placement Information Patient Contact Information Contact Name:KENDRA Relationship:Life Partner Address: Work Phone: Mya:LYNDA Alternate Phone: [facility]/Zip Code:[place] Email: Financial Information Financial Class:Medicare Primary Plan Desc:MEDICARE OUTPATIENT Primary Plan Number:[id number] Secondary Plan Desc:MED[place] Secondary Plan Number:[id number] Assessment Information LACE LACE Length of stay for Answers: Less than 1 day current admission Acuity / Level of Answers: No Care: Did the patient have an inpatient admission? Comorbidities - select Answers: Other Notes: C5 all that apply quadriplegic, Hypothyro idi sm, chronic UTIs, HTN, adrenal insufficiency # of Emergency department Answers: 1-2 visits in the last 6 months Score: 2 Date Signed: 02/15/2018 03:23 PM Electronically Signed By:Tricia Stewart RN Case Management Discharge Plan Note Case Management Discharge Discharge Order Complete? Answers: Yes Patient to Obtain Answers: via Family Medications Transportation Arranged Answers: Other Notes: family EMTALA Complete Answers: No Case Management Transport Answers: No Form Complete Faxed Final Orders Answers: No Agency/Facility Transfer Answers: No Report Printed & Faxed to Receiving Agency Family Notified Answers: Yes Notes: per pt Discharge Comments Notes: 02/15/2018 Case Management Note Met w/pt. REY signed, witnessed by case management. Pt to have partner picker operator and transport home. Pt wants to use [employer] for INR draws. Pt to arrange for daily visits for short term to follow trends. Pt refused HC services. There are no further case mangement d/c needs. Date Signed: 02/15/2018 01:36 PM Electronically Signed By:TONYA Esqueda Intervention Information Intervention Type:*LE-Signed Date of Service:02/15/2018 12:02 PM Patient Type:Observation Staff Member:MIREYA Stewart, [facility] Hours: Discipline: Severity: Comment:Witnessed pt sign. Pt is quadriplegic .
--- NOTE | 2018-02-15 17:14 | GDS ---
DISCHARGE DIAGNOSES: 1. Supratherapeutic INR. 2. Starvation ketoacidosis. 3. Incomplete C5 quadriplegia. 4. History of deep venous thrombosis and pulmonary embolism. 5. Adrenal insufficiency. 6. Neurogenic bladder with suprapubic catheter. HPI: A 52-year-old male with incomplete C5 quadriplegia, DVT/PE on Coumadin, who presented with elevated INR. He has been on a 10-day fast, drinking only water and minerals. Prior to that, he was drinking 16 ounces of a green drink that contained a lot of green vegetables. Early last week, he remembered that he had been forgetting to drink his daily green drink and started to hold his Coumadin at home. His last dose of Coumadin was on Thursday. He has noticed some blood around his suprapubic catheter but no other bleeding. HOSPITAL COURSE BY PROBLEM: 1. Supratherapeutic INR. This is due to dietary fasting and abruptly discontinuing his green juice. Dosed vitamin K. No active bleeding. Lovenox bridge, especially since wheelchair bound. 2. Metabolic acidosis. Secondary to starvation ketoacidosis. He was hydrated with improvement. He was advised to avoid fasting unless talking to his physician. 3. C5 quadriplegia. He is wheelchair bound. 4. Adrenal insufficiency. Hydrocortisone. 5. Chronic suprapubic [place]. Disp: stable for discharge home. NEW MEDICATIONS: Lovenox 60 mg twice daily. FOLLOWUP: 1. Primary care physician. 2. Follow up INR tomorrow. He was sent home with [facility] to check INR. PHYSICAL EXAMINATION: VITAL SIGNS: Today, temperature is 37.1, blood pressure 132/72, heart rate is in the 50s to 60s, respiratory rate is 14, 96% on room air. GENERAL: He is well appearing. No acute distress. HEENT: PERRLA. Moist mucous membranes. CV: Regular rate and rhythm. LUNGS: Clear. ABDOMEN : Soft, nontender. : Suprapubic catheter in place. NEURO: 2-12 intact. PSYCH: Alert and oriented x3. TIME SPENT ON DISCHARGE: Greater than 30 minutes at bedside with patient discussing medications and discussing with Pharmacy as well. /[id number]/MODL MTDD
== END 2018-02-15 14:37 | disposition home or self-care (01) ==
LOC: F2W 17:10
PROVIDERS: ADMIT Internal Medicine; ATTEND Internal Medicine
DX: D68.9 Coagulation defect, unspecified (principal); E87.2 Acidosis; G82.54 Quadriplegia, C5-C7 incomplete; E27.40 Unspecified adrenocortical insufficiency; N31.9 Neuromuscular dysfunction of bladder, unspecified; I95.9 Hypotension, unspecified; E03.9 Hypothyroidism, unspecified; I10 Essential (primary) hypertension; Z86.718 Personal history of other venous thrombosis and embolism; Z86.711 Personal history of pulmonary embolism
CPT/HCPCS: G0378; J1650; J3430; 96365

== ENCOUNTER 2018-02-25 11:08 | Emergency (ER) | payer OTHER, MEDICAID ==
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
[2018-02-25 11:52] LABS: PLATELET COUNT 157 10^3/uL (150-400)
[2018-02-25 11:53] LABS: INR 3.73 (0.83-1.16); PROTIME(PATIENT) 36.6 SEC (12.0-15.0)
[2018-02-25 14:21] VITALS: BP 125/75
== END 2018-02-25 14:21 | disposition home or self-care (01) ==
LOC: EDUNIT#
DX: K62.5 Hemorrhage of anus and rectum (principal)

== ENCOUNTER → 2018-05-19 | Outpatient (CLI) | payer OTHER ==
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
== END | disposition home or self-care (01) ==
PROVIDERS: ATTEND Internal Medicine
DX: S14.155S Other incomplete lesion at C5 level of cervical spinal cord, sequela (principal); Z98.1 Arthrodesis status; Z99.3 Dependence on wheelchair
CPT/HCPCS: 97162; G8978; G8979; G8980

== ENCOUNTER 2018-06-30 13:33 | Observation (INO) | payer OTHER ==
[2018-06-30] MEDS ORDERED: NS 1,000 ML IV ONE ×2 (13:47→18:29)
[2018-06-30] MEDS ORDERED: ONDANSETRON 4 MG/2 ML VIAL IVP ONE (13:47)
--- NOTE | 2018-06-30 13:52 | EDPHY ---
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 The patient tells me that he tried "magic mushrooms"orally for the 1st time on Thursday and since then has had multiple episodes of nausea and vomiting with intermittent dizziness. He also increased his anti parasitic herbs on Thursday. Patient presents today with persistent nausea. Unable to tolerate oral intake for the past 2 days. Associated with dizziness which she says is lightheadedness worse with looking he either to the left or the right. No actual syncope. He does says he almost blacked out a couple of times over the past 2 days. No diarrhea , did have bowel movement yesterday and a small 1 today. REVIEW OF SYSTEMS: Eye: no change in vision ENT: No ear symptoms. Cardiac: no chest pain or syncope Pulmonary: no cough or SOB Abdomen: HPI Musculoskeletal: no back pain Skin: no rash Neuro: no headache Constitutional: no fever : no urinary symptoms A comprehensive 10 point review of systems is otherwise negative aside from elements mentioned in the history of present illness. 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 Eyes: No scleral icterus. ENT, Mouth: Dry mucous membranes. Respiratory: Normal respiratory effort, breath sounds equal, lungs are clear to auscultation. Cardiovascular: Regular rate and rhythm. Gastrointestinal: Abdomen is soft and non tender. Not distended with normal bowel sounds. Neurological: Alert and normally conversant. He has some movement of upper extremities and is paralyzed in his lower extremities which is baseline. Skin: Warm and dry, no rashes. Musculoskeletal: No peripheral edema. Psychiatric: Not agitated. Emergency Department course/MDM: Plan for recheck sodium, IV fluids and Zofran for nausea. I think that bowel obstruction or acute surgical abdominal process is unlikely. No recent head trauma, no headache, I think intracranial hemorrhage is unlikely. Vertigo or side effects from his magic mushroom ingestion would be more likely 1500: Results discussed, admit for treatment of dehydration and hyponatremia. Patient consents. Smoking Status: Never smoked Constitutional: Initial Vital Signs Temperature (C) 36.7 C 06/30/18 13:35 Heart Rate 62 06/30/18 13:35 Respiratory Rate 16 06/30/18 13:35 Blood Pressure 129/89 H 06/30/18 13:35 O2 Sat (%) 98 06/30/18 13:35 O2 Delivery Mode Room Air Allergies/Adverse Reactions: bacitracin [From Neosporin ([id number])] Allergy (Verified 06/30/18 13:35) bacitracin zinc [From Neosporin ([id number])] Allergy (Verified 06/30/18 13: 35) neomycin sulfate [From Neosporin ([id number])] Allergy (Verified 06/30/18 13: 35) polymyxin B [From Neosporin ([id number]-bbr-vkhhp)] Allergy (Verified 06/30/18 13:35) sulfamethoxazole [From Bactrim] Allergy (Verified 06/30/18 13:35) trimethoprim [From Bactrim] Allergy (Verified 06/30/18 13:35) Home Medications: Medication Instructions Recorded Levothyroxine [Synthroid 88 mcg 88 mcg PO DAILY@0700 07/04/16 (*)] Liothyronine Sodium [Cytomel 5 mcg 5 mcg PO DAILY@0700 07/04/16 (*)] Midodrine HCl 10 mg PO DAILY 07/04/16 Herbals/Supplements -Info Only 1 ea PO DAILY 02/14/18 Hydrocortisone 2.5 mg PO DAILY@12 18 Hydrocortisone 3.75 mg PO DAILY@08 18 Lipase/Protease/Amylase [Zenpep Dr 3 cap PO TID 02/14/18 5,000 Unit Capsule] Melatonin [Melatonin 5 mg] 10 mg PO HS 02/14/18 Midodrine HCl 5 mg PO DAILY@12,17,21 02/14/18 Phenylephrine HCl 1 drop OP AC PRN 02/14/18 Potassium Cl [Klor-Con 10 meq (RX)] 10 meq PO TIDMEAL 02/14/18 Warfarin Sodium [Coumadin 5MG (*)] 15 mg PO DAILY16 02/14/18 Enoxaparin [Lovenox 60 MG (*)] 60 mg SC BID #6 syr 02/15/18 Medical Decision Making Consult/Admit Bed Type: [place] [id number] - Data Points Laboratory Results: Laboratory Results 06/30/18 13:55 06/30/18 13:55 06/30/18 06/30/18 06/30/18 13:55 13:55 13:55 WBC 4.38 10^3/uL 10^3/uL (3.80-9.50) RBC 3.83 10^6/uL L 10^6/uL (4.40-6.38) Hgb 12.2 g/dL L g/dL (13.7-17.5) Hct 35.6 % L % (40.0-51.0) MCV 93.0 fL fL (81.5-99.8) MCH 31.9 pg pg (27.9-34.1) MCHC 34.3 g/dL g/dL (32.4-36.7) RDW 12.1 % % (11.5-15.2) Plt Count 181 10^3/uL 10^3/uL (150-400) MPV 9.2 fL fL (8.7-11.7) Neut % (Auto) 66.2 % % (39.3-74.2) Lymph % (Auto) 18.3 % % (15.0-45.0) [place] % (Auto) 12.8 % % (4.5-13.0) Eos % (Auto) 1.1 % % (0.6-7.6) Baso % (Auto) 0.9 % % (0.3-1.7) Nucleat RBC Rel Count 0.0 % % (0.0-0.2) Absolute Neuts (auto) 2.90 10^3/uL 10^3/uL (1.70-6.50) Absolute Lymphs (auto) 0.80 10^3/uL L 10^3/uL (1.00-3.00) Absolute Monos (auto) 0.56 10^3/uL 10^3/uL (0.30-0.80) Absolute Eos (auto) 0.05 10^3/uL 10^3/uL (0.03-0.40) Absolute Basos (auto) 0.04 10^3/uL 10^3/uL (0.02-0.10) Absolute Nucleated RBC 0.00 10^3/uL 10^3/uL (0-0.01) Immature Gran % 0.7 % % (0.0-1.1) Immature Gran # 0.03 10^3/uL 10^3/uL (0.00-0.10) PT 22.0 SEC H SEC (12.0-15.0) INR 1.91 H (0.83-1.16) APTT 41.3 SEC H SEC (23.0-38.0) Sodium 125 mEq/L L mEq/L (135-145) Potassium 4.5 mEq/L mEq/L (3.5-5.2) Chloride 95 mEq/L L mEq/L (97-110) Carbon Dioxide 16 mEq/l L mEq/l (22-31) Anion Gap 14 mEq/L mEq/L (6-14) BUN 5 mg/dL L mg/dL (7-23) Creatinine 0.4 mg/dL L mg/dL (0.7-1.3) Estimated GFR > 60 Glucose 74 mg/dL mg/dL (70-100) Calcium 8.3 mg/dL L mg/dL (8.5-10.4) Specimen Hemolysis 120 Medications Given: Discontinued Medications Sodium Chloride (Ns) 1,000 mls @ 0 mls/hr IV EDNOW ONE; Wide Open PRN Reason: Protocol Stop: 06/30/18 13:48 Last Admin: 06/30/18 14:03 Dose: 1,000 mls Ondansetron HCl (Zofran) 4 mg IVP EDNOW ONE Stop: 06/30/18 13:48 Last Admin: 06/30/18 14:03 Dose: 4 mg Departure - Departure Disposition: [facility] Inpatient Acute Clinical Impression: Hyponatremia Nausea & vomiting Qualifiers: Vomiting type: unspecified Vomiting Intractability: non-intractable Qualified Code(s): R11.2 - Nausea with vomiting, unspecified Condition: Good Referrals: Patient,NotPresent [Unknown] - As per Instructions
[2018-06-30 14:15] LABS: PLATELET COUNT 181 10^3/uL (150-400)
[2018-06-30 14:26] LABS: INR 1.91 (0.83-1.16)
[2018-06-30] MEDS ORDERED: HYDROmorphONE/DILAUDID 1 MG/ML INJ IVP PRN (15:51)
[2018-06-30] MEDS ORDERED: PROMETHAZINE HCL 25 MG/ML INJ IVP PRN (15:51)
[2018-06-30] MEDS ORDERED: ONDANSETRON 4 MG/2 ML VIAL IVP PRN (15:51)
[2018-06-30] MEDS ORDERED: oxyCODONE IR 5 MG TAB PO PRN (15:51)
[2018-06-30] MEDS ORDERED: ONDANSETRON DISINTEGRATING 4 MG TAB PO PRN (15:51)
[2018-06-30] MEDS ORDERED: HYDROCODONE/APAP 5/325 TAB PO PRN (15:51)
[2018-06-30] MEDS ORDERED: ACETAMINOPHEN 325 MG TAB PO PRN (15:51)
[2018-06-30] MEDS ORDERED: NS 1,000 ML IV SCH (16:00)
[2018-06-30] MEDS ORDERED: WARFARIN SODIUM 4 MG TAB PO ONE (17:00)
[2018-06-30] MEDS ORDERED: PHENYLEPHRINE 10% OP PRN (17:05)
--- NOTE | 2018-06-30 17:48 | PDGENHP ---
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 He notes that he takes a antiparasitic herbal blend that includes wormwood and that he recently increased the dose of this and has had issues when he increased the dose in the past where he will get n/v and drops in his BP. He also tried hallucinogenic mushrooms immediately before the onset of his sxs but furthermore was potentially exposed to other people who had similar sxs. He has not had diarrhea , he does not know if he has any abdominal pain as he has no feeling below the nipple line. He has continued to take his usual medications including midodrine at home. He notes that he currently feels better since getting zofran and states that he is hungry. History Information - Allergies/Home Medication List Allergies/Adverse Reactions: No Known Allergies Allergy (Verified 06/30/18 15:19) Home Medications: Levothyroxine [Synthroid 88 mcg (*)] 88 mcg PO DAILY06 07/04/16 [Last Taken ] Liothyronine Sodium [Cytomel 5 mcg (*)] 5 mcg PO DAILY@0700 07/04/16 [Last Taken 06/29/18] Midodrine HCl 10 mg PO DAILY 07/04/16 [Last Taken 06/30/18] Herbals/Supplements -Info Only 1 ea PO DAILY 02/14/18 [Last Taken Unknown] Lipase/Protease/Amylase [Zenpep Dr 5,000 Unit Capsule] 3 cap PO TID 02/14/18 [ Last Taken 02/04/18] Melatonin [Melatonin 5 mg] 10 mg PO HS 02/14/18 [Last Taken 06/29/18] Midodrine HCl 5 mg PO DAILY@12,17,21 02/14/18 [Last Taken 06/29/18 21:00] Phenylephrine HCl 1 drop NASAL AC PRN 02/14/18 [Last Taken Unknown] Midodrine HCl 10 mg PO DAILY@02 PRN 06/30/18 [Last Taken 06/30/18] Warfarin Sodium [Coumadin 4MG (*)] 12 mg PO HS 06/30/18 [Last Taken 01/13/19] I have personally reviewed and updated: family history, medical history, social history, surgical history - Past Medical History DVT, pulmonary embolism Additional medical history: incomplete C5 quadriplegic. neurogenic bladder with SPC. hypothyroid. adrenal insufficiency - Surgical History Additional surgical history: tooth surgery on Thursday - Family History Positive for: non-pertinent - Social History Smoking Status: Never smoked Alcohol Use: Rarely Drug Use: Other (hallucinogenic mushrooms used last week) Review of Systems Review of Systems: ROS: 10pt was reviewed & negative except for what was stated in HPI & below Physical Exam Physical Exam: Temp Pulse Resp BP Pulse Ox 36.6 C 50 L 16 92/57 L 98 06/30/18 16:26 06/30/18 16:26 06/30/18 16:26 06/30/18 16:48 06/30/18 16:26 Constitutional: no apparent distress, appears nourished Eyes: PERRL Ears, Nose, Mouth, Throat: moist mucous membranes, hearing normal, ears appear normal Cardiovascular: no murmur, rub, or gallop, systolic murmur, tachycardia, No edema Respiratory: no respiratory distress, no rales or rhonchi, clear to auscultation Gastrointestinal: soft, non-tender abdomen, no palpable masses, No normoactive bowel sounds Genitourinary: no bladder tenderness, other (spc) Skin: warm, normal color Musculoskeletal: No full muscle strength, No asymmetric calves, No muscular tenderness Neurologic: AAOx3, weakness (BUE contracted with limited movmement, no strength in BLE), CN II-XII Intact Psychiatric: interacting appropriately, not anxious, not encephalopathic Lab Data & Imaging Review 06/30/18 13:55 06/30/18 13:55 WBC 4.38 10^3/uL (3.80-9.50) 06/30/18 13:55 RBC 3.83 10^6/uL (4.40-6.38) L 06/30/18 13:55 Hgb 12.2 g/dL (13.7-17.5) L 06/30/18 13:55 Hct 35.6 % (40.0-51.0) L 06/30/18 13:55 MCV 93.0 fL (81.5-99.8) 06/30/18 13:55 MCH 31.9 pg (27.9-34.1) 06/30/18 13:55 MCHC 34.3 g/dL (32.4-36.7) 06/30/18 13:55 RDW 12.1 % (11.5-15.2) 06/30/18 13:55 Plt Count 181 10^3/uL (150-400) 06/30/18 13:55 MPV 9.2 fL (8.7-11.7) 06/30/18 13:55 Neut % (Auto) 66.2 % (39.3-74.2) 06/30/18 13:55 Lymph % (Auto) 18.3 % (15.0-45.0) 06/30/18 13:55 [place] % (Auto) 12.8 % (4.5-13.0) 06/30/18 13:55 Eos % (Auto) 1.1 % (0.6-7.6) 06/30/18 13:55 Baso % (Auto) 0.9 % (0.3-1.7) 06/30/18 13:55 Nucleat RBC Rel Count 0.0 % (0.0-0.2) 06/30/18 13:55 Absolute Neuts (auto) 2.90 10^3/uL (1.70-6.50) 06/30/18 13:55 Absolute Lymphs (auto) 0.80 10^3/uL (1.00-3.00) L 06/30/18 13:55 Absolute Monos (auto) 0.56 10^3/uL (0.30-0.80) 06/30/18 13:55 Absolute Eos (auto) 0.05 10^3/uL (0.03-0.40) 06/30/18 13:55 Absolute Basos (auto) 0.04 10^3/uL (0.02-0.10) 06/30/18 13:55 Absolute Nucleated RBC 0.00 10^3/uL (0-0.01) 06/30/18 13:55 Immature Gran % 0.7 % (0.0-1.1) 06/30/18 13:55 Immature Gran # 0.03 10^3/uL (0.00-0.10) 06/30/18 13:55 PT 22.0 SEC (12.0-15.0) H 06/30/18 13:55 INR 1.91 (0.83-1.16) H 06/30/18 13:55 APTT 41.3 SEC (23.0-38.0) H 06/30/18 13:55 Sodium 125 mEq/L (135-145) L 06/30/18 13:55 Potassium 4.5 mEq/L (3.5-5.2) 06/30/18 13:55 Chloride 95 mEq/L (97-110) L 06/30/18 13:55 Carbon Dioxide 16 mEq/l (22-31) L 06/30/18 13:55 Anion Gap 14 mEq/L (6-14) 06/30/18 13:55 BUN 5 mg/dL (7-23) L 06/30/18 13:55 Creatinine 0.4 mg/dL (0.7-1.3) L 06/30/18 13:55 Estimated GFR > 60 06/30/18 13:55 Glucose 74 mg/dL (70-100) 06/30/18 13:55 Calcium 8.3 mg/dL (8.5-10.4) L 06/30/18 13:55 Specimen Hemolysis 120 06/30/18 13:55 Assessment & Plan Assessment: Hyponatremia (Acute) Nausea & vomiting (Acute) 52 yo C5 partial quadriplegic with hx of DVT/PE and AI presenting with n/v/ hyponatremia and hypotension # acute on chronic adrenal insufficiency: with hx of chronic AI and several days of n/v likely precipitating acute AI/adrenal crisis. Continues to be hypotensive despite IVF and taking his home midodrine and phenylephrine. Will start stress dose hydrocortisone for now and monitor overnight. # n/v: in the setting of herbal use/hallucinogenic mushroom use and potentially being exposed to others with GI illness as well as hyponatremia and concerns for acute adrenal insufficiency as above likely precipitated by prolonged n/v. Has improved now s/p zofran, will monitor # hyponatremia: hypovolemic hyponatremia in the setting of several days of n/v and poor po intake, also likely contribution of acute adrenal insufficiency as above, will monitor overnight but given only mildly decreased sodium level low concern for rapid correction, IVF/hydrocortisone. Will recheck tonight and in am # DVT/PE: on chronic AC, INR slightly low on arrival, will continue warfarin with pharmacy to dose # hypothyroid: continue Lt4 # incomplete c5 quad: with neurogenic bladder, pt/ot # observation status, suspect patient will require < 48 hours stay for eval/ mgmt of above Patient new to my care. Old records reviewed and summarized as above. Care plan reviewed with ER doctor as above.
[2018-06-30] MEDS: MIDODRINE HCL 5 MG TAB PO SCH ×2 (18:25→22:07)
[2018-06-30] MEDS: HYDROCORTISONE 100 MG/2 ML VIAL IVP SCH (18:26)
[2018-06-30] MEDS: PROTEASE PO SCH ×2 (18:55→22:00)
[2018-06-30] MEDS: LIPASE PO SCH ×2 (18:55→22:00)
[2018-06-30] MEDS: AMYLASE PO SCH ×2 (18:55→22:00)
[2018-06-30] MEDS ORDERED: MELATONIN 3 MG TAB PO SCH (21:00)
[2018-07-01] MEDS: HYDROCORTISONE 100 MG/2 ML VIAL IVP SCH ×3 (00:48→13:14)
[2018-07-01] MEDS ORDERED: MIDODRINE HCL 10 MG TAB PO PRN (02:00)
[2018-07-01] MEDS ORDERED: BISACODYL 10 MG SUPP PR PRN (04:04)
[2018-07-01] MEDS ORDERED: POLYETHYLENE GLYCOL 3350 17 GM PKT PO PRN (04:04)
[2018-07-01] MEDS ORDERED: LACTULOSE 20 GM/30 ML UDCUP PO PRN (04:04)
[2018-07-01] MEDS ORDERED: MAGNESIUM HYDROXIDE 30 ML UDCUP PO PRN (04:04)
[2018-07-01 05:18] LABS: PLATELET COUNT 214 10^3/uL (150-400)
[2018-07-01 05:24] LABS: INR 1.69 (0.83-1.16)
[2018-07-01] MEDS ORDERED: LEVOTHYROXINE 88 MCG TAB PO SCH (07:30)
[2018-07-01] MEDS ORDERED: LIOTHYRONINE SODIUM 5 MCG TAB PO SCH (08:30)
[2018-07-01] MEDS ORDERED: MIDODRINE HCL 5 MG TAB PO SCH (09:00)
[2018-07-01] MEDS: PROTEASE PO SCH ×2 (09:10→16:27)
[2018-07-01] MEDS: AMYLASE PO SCH ×2 (09:10→16:27)
[2018-07-01] MEDS: LIPASE PO SCH ×2 (09:10→16:27)
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
[2018-07-01] MEDS: ENOXAPARIN 40 MG/0.4 ML SYR SC SCH ×2 (13:10→13:14)
[2018-07-01] MEDS: MIDODRINE HCL 5 MG TAB PO SCH ×3 (13:10→15:11)
--- NOTE | 2018-07-01 13:17 | PDIAF ---
- Diagnosis Diagnosis: hyponatremia, rule out adrenal insufficiency Code Status: Full Code - Medication Management Discharge Medications: electronically signed and located in the Home Medication List. - Orders Services needed: Home Care, Registered Nurse Home Care Face to Face: I certify that this patient was under my care and that I had the required [id number] encounter meeting the encounter requirements on the discharge day. My findings support the fact that the patient is homebound as defined in Home Care Face to Face Continued: CMS Chapter 7 Medicare Benefits Manual 30.1.1 , The condition of the patient is such that there exists a normal inability to leave home and consequently, leaving home would require a considerable and taxing effort. Isolation Type: None Diet Recommendation: no restrictions on diet Additional Instructions: Outpatient Cortrosyn stimulation test recommended Repeat sodium level within 1 week - Labs/Radiology BMP Date: 07/05/18 Other Lab Name, Date and Time: AM cortisol, must be done around 8:00 am. Cotrosyn stim test if available - Follow Up Care Current Providers and Referrals: Patient,NotPresent [Unknown] - As per Instructions
--- NOTE | 2018-07-01 14:24 | ASMTDCNOTE ---
Case Management Discharge Discharge Order Complete? Answers: Yes Patient to Obtain Answers: via Family Medications Transportation Arranged Answers: Family/Friends Faxed Final Orders Answers: Yes Agency/Facility Transfer Answers: Yes Report Printed & Faxed to Receiving Agency Discharge Comments Notes: CM met with pt, lives independently with . MD recommends home care. CM reviewed chart and spoke to pt about concerns with insurance. CM spoke with [facility] and pt qualifies for homecare. CM linked pt with [facility]. Pt reports no other concerns. Family to transport. Date Signed: 07/01/2018 02:24 PM Electronically Signed By:TONYA Earl
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
[2018-07-01] MEDS ORDERED: WARFARIN SODIUM 4 MG TAB PO ONE (16:00)
--- NOTE | 2018-07-01 16:13 | ASMTCMCOM ---
CM Note CM Note Notes: Pt requested CM to arrange transport through [facility] CM scheduled for 1650. Discussed potential costs associated and pt reported he has done it before and had no concerns. CM will complete PCS. Date Signed: 07/01/2018 04:13 PM Electronically Signed By:TONYA Earl
[2018-07-01 16:42] VITALS: BP 99/64
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
[2018-07-01] MEDS ORDERED: WARFARIN SODIUM 4 MG TAB PO SCH (21:00)
== END 2018-07-01 17:01 | disposition home health service (06) ==
LOC: EDUNIT# → F1N 16:02
PROVIDERS: ADMIT Internal Medicine; ATTEND Internal Medicine
DX: E87.1 Hypo-osmolality and hyponatremia (principal); E86.0 Dehydration; I95.9 Hypotension, unspecified; R11.2 Nausea with vomiting, unspecified; E03.9 Hypothyroidism, unspecified; G82.54 Quadriplegia, C5-C7 incomplete; N31.9 Neuromuscular dysfunction of bladder, unspecified; I10 Essential (primary) hypertension; Z86.718 Personal history of other venous thrombosis and embolism; Z86.711 Personal history of pulmonary embolism; Z98.1 Arthrodesis status; Z99.3 Dependence on wheelchair; Z79.01 Long term (current) use of anticoagulants
CPT/HCPCS: 96361; 96374; 96375; 96376; 99285; G0378; J1650; J1720; J2405